=== PATIENT | female | born 2000 | race Hispanic/Latino ===

== ENCOUNTER 2023-10-25 15:42 | Emergency (ER) | payer SELFPAY ==
--- NOTE | 2023-10-25 15:45 | EDRN ---
called for pt, no response.
[2023-10-25 15:51] VITALS: BP 121/57
[2023-10-25 16:28] LABS: % Basophils 0.6 % (0-2); % Eosinophils 0.7 % (0-6); % Immature Granulocytes 0.2 % (0-0.5); % Lymphocytes 30.4 % (20.5-51.1); % Monocytes 5.8 % (1.7-9.3); % Neutrophils 62.3 % (42.2-75.2); Absolute Lymphocytes 1.6 10^3/uL (1.2-3.4); Absolute Monocytes 0.3 10^3/uL (0.1-0.6); Absolute Neutrophils 3.3 10^3/uL (1.4-6.5); Hematocrit 36.3 % (37.0-47.0); Hemoglobin 12.8 g/dL (12.0-16.0); Mean Corp Hgb Conc. 35.3 g/dL (33.0-37.0); Mean Corpuscular Hgb 31.7 pg (27.0-31.0); Mean Corpuscular Volume 89.9 fL (81.0-99.0); Mean Platelet Volume 9.3 fL (7.4-10.4); Nucleated Red Blood Cells % 0 %; Platelet Count 228 10^3/uL (130-400); Red Blood Cell Count 4.04 10^6/uL (4.20-5.40); Red Cell Dist. Width 12.9 % (11.5-14.5); White Blood Cell Count 5.4 10^3/uL (4.8-10.8)
--- NOTE | 2023-10-25 16:50 | ED.GENMED ---
History of Present Illness
General
Chief Complaint: Problems
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
Exam Limitations: none
Time Seen by Provider: 10/25/23 16:48
Nursing documentation reviewed up to this point in time: agreed with
History of Present Illness
History of Present Illness:
23 yo [id number] female states LMP 08/20. Yesterday first urination of a.m. she noted a lot of blood in toilet then small amounts when wiping but has not had to use pad and no blood in underwear.
Today, first void also had 'a lot' of blood in toilet and very little spotting on toilet paper since.
States minimal mid lower abd pain at this time.
Past History
Past History
ED Past Medical History: None
ED Past Surgical History:
Social History
Tobacco: Non-smoker
Alcohol: None
Review of Systems
Review of Systems
Allergies reviewed?: Yes
All Other Systems: ROS reviewed and negative except as documented in HPI and ROS
Constitutional: Denies fever or fatigue
Respiratory: Denies trouble breathing
Cardiac: Denies chest pain
ABD/GI: Reports abdominal pain (mild mid lower ); Denies nausea, vomiting or diarrhea
: Reports bleeding (as noted in HPI, no bleeding currently); Denies dysuria, frequency or difficulty voiding
Musculoskeletal: Reports no symptoms
Skin: Reports no symptoms
Neurological: Reports no symptoms
Phy Exam
Physical Exam
Physical Exam:
GENERAL: No acute distress. A&Ox3.
CONSTITUTIONAL: Afebrile.
EYES: clear, conjunctivae normal
ENMT: moist mucus membranes, Pharynx nl
RESPIRATORY: Regular respirations, nonlabored, lungs clear.
CARDIOVASCULAR: Regular rate and rhythm, no murmurs, no rubs.
GI: Soft, nontender, normal BS
MUSCULOSKELETAL: Moves with ease. Well perfused.
SKIN: Warm, dry, pink
PSYCH: Normal mood and affect. Well kept, interactive and appropriate
NEUROLOGIC: Awake, alert and oriented. No focal neurological deficits
Course
Orders/Labs/Results
Orders:
Orders
10/25/23 15:59
US 1st Trimester Urgent
Reason For Exam: bilateral pelvic/lower abd pain, vaginal bleeding
10/25/23 16:14
Type+Screen Urgent
Complete Blood Count/With Diff Urgent
HCG, Beta Quantitative [Beta HCG Quantitative] Urgent
Is this a screen?: No
10/25/23 17:22
ABO2 Urgent
BBK Wristband Number:
Associate notified that ABO2 has been ordered: [id number]
Date: 10/25/23
Time: 16:59
Inner Diameter Grinder Tool ID: [id number]
Abnormal Lab Results
10/25/23
16:14
RBC 4.04 L 10^6/uL
(4.20-5.40)
Hct 36.3 L %
(37.0-47.0)
MCH 31.7 H pg
(27.0-31.0)
10/25/23 16:14
Vital Signs
Initial and Last Documented VS:
Initial Vital Signs
Temp Pulse Resp BP Pulse Ox
98.8 F 54 18 121/57 100
10/25/23 15:51 10/25/23 15:51 10/25/23 15:51 10/25/23 15:51 10/25/23 15:51
Last Documented Vital Signs
Temp Pulse Resp BP Pulse Ox
98.8 F 52 18 96/57 98
10/25/23 15:51 10/25/23 19:52 10/25/23 19:52 10/25/23 19:52 10/25/23 19:52
Information
Weeks gestation: N/A
Location: N/A
MDM/Problems Addressed
Differential Diagnosis Includes:
bleeding in early , subchorionic bleeding, threatened miscarriage
MDM/Problems Addressed:
23 yo [id number] female states LMP 715. Yesterday first urination of a.m. she noted a lot of blood in toilet then small amounts when wiping but has not had to use pad and no blood in underwear.
Today, first void also had 'a lot' of blood in toilet and very little spotting on toilet paper since.
States minimal mid lower abd pain at this time.
5:00 p.m.
CBC normal
HCG 90862.00
Blood type O pos
Awaiting US result.
Case discussed with Neelima Cates who will assume care from this point.
*Critical Care Note
Total Time (30-74mins, 75-104mins- exclusive of procedures): Not Applicable
ED Attending Note
-
Portions of this chart may have been created with voice recognition software.� Occasional wrong word or��sound alike� substitutions may have occurred due to the inherent limitations of voice recognition software.
Discharge Plan
Departure
Patient Disposition: Home (Routine Discharge)
Date of Disposition: 10/25/23
Time of Disposition: 20:15
Patient with high blood pressure during this ER visit?: No
Condition: Good
Discharge Problem:
Bleeding in early
Instructions: Bleeding in Early (DC)
Referrals:
Malini El, DO [Active] - Next open appointment
NONE,* [Family Provider] -
Activity Restrictions/Additional Instructions:
As we discussed, the gestational sac is visible on ultrasound but a fetus was not detected. This can occur in early , or this can occur with demise. You will need to have your hormone levels rechecked and follow up with an
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
Interventions
Interventions:
*Risk Screen - Suicide Last Done: 10/25/23 16:49
*General Assessment Last Done: 10/25/23 16:47
*Neglect/Abuse Screening Last Done: 10/25/23 16:47
ED- Fall Risk Assessment Last Done: 10/25/23 16:47
*Nursing Disposition Last Done: 10/25/23 20:16
ED-Female Genitourinary Assessment Last Done: 10/25/23 16:47
Discharge Date and Time
Discharge Date/Time: 10/25/23 20:33
Print Language: AMHARIC
[2023-10-25 18:09] VITALS: BP 124/76
[2023-10-25 19:52] VITALS: BP 96/57
== END 2023-10-25 20:33 | disposition home or self-care (01) ==
LOC: EMR 15:42
PROVIDERS: EMERGENCY PHYSICIAN Emergency Medicine
DX: O20.9 Hemorrhage in early pregnancy, unspecified (principal); Z3A.01 Less than 8 weeks gestation of pregnancy; R10.30 Lower abdominal pain, unspecified
CPT/HCPCS: 99284; 76801; 84702; 85025; 86850; 86900; 86901

== ENCOUNTER 2023-12-11 15:22 | Emergency (ER) | payer SELFPAY ==
[2023-12-11 15:25] VITALS: BP 108/66
[2023-12-11 17:06] VITALS: BP 96/60
[2023-12-11 17:15] LABS: % Basophils 0.4 % (0-2); % Eosinophils 0.6 % (0-6); % Immature Granulocytes 0.2 % (0-0.5); % Lymphocytes 30.4 % (20.5-51.1); % Monocytes 8.6 % (1.7-9.3); % Neutrophils 59.8 % (42.2-75.2); Absolute Lymphocytes 1.6 10^3/uL (1.2-3.4); Absolute Monocytes 0.5 10^3/uL (0.1-0.6); Absolute Neutrophils 3.2 10^3/uL (1.4-6.5); Hematocrit 35.5 % (37.0-47.0); Hemoglobin 12.7 g/dL (12.0-16.0); Mean Corp Hgb Conc. 35.8 g/dL (33.0-37.0); Mean Corpuscular Volume 86.6 fL (81.0-99.0); Mean Platelet Volume 9.2 fL (7.4-10.4); Nucleated Red Blood Cells % 0 %; Platelet Count 231 10^3/uL (130-400); White Blood Cell Count 5.4 10^3/uL (4.8-10.8)
--- NOTE | 2023-12-11 17:27 | ED.GENMED ---
History of Present Illness
General
Chief Complaint: Problems
Source: patient
Exam Limitations: none
Time Seen by Provider: 12/11/23 16:07
Nursing documentation reviewed up to this point in time: agreed with
History of Present Illness
History of Present Illness:
pt is a 23 y/o f [id number]
here approx 12 weeks preg
vaginal bleeding started 4 days ago after intercourse; small amount, brown bleeding, no pain, no burning with urination
had eval here on 10/24 for PVB and had US showing 5 week gest sac with no pole or yolk sac
she was supposed to f/u but unfortuantely she doesn't have insurance and has not
she hasn't had bleeding until now
no fever/chills
Past History
Past History
ED Past Medical History: None
ED Past Surgical History:
Social History
Tobacco: Non-smoker
Alcohol: None
Review of Systems
Review of Systems
Allergies reviewed?: Yes
All Other Systems: Not applicable
Phy Exam
Physical Exam
Physical Exam:
GENERAL: Alert , in no apparent distress
EYE: pupils equal and reactive
NECK: Supple
ENT: o/p clr, mmm.
CARDIAC: Regular rate and rhythm .
LUNGS: Clear breath sounds bilaterally, no acute respiratory distress, no wheezes/rales/rhonchi
ABDOMEN: Soft, without focal tenderness, no r/g, no cvat, normal bowel sounds
: small amount of brownish/red blood in vault
os closed
nontneder
no lacerations
NEUROLOGICAL: Alert and oriented, no focal neuro deficits
SKIN: Warm and dry, skin intact.
MUSCULOSKELETAL: No edema, well perfused. neg domingo's sign
PSYCH: Normal and appropriate interaction.
Course
Orders/Labs/Results
Orders:
Orders
12/11/23 16:56
1st Trimester US [US 1st Trimester] Urgent
Comment:
Reason For Exam: VAG BLEED PREG; HAS NOT HAD IUP DOCUMENTED ON US
12/11/23 17:08
Beta HCG Quantitative Urgent
Is this a screen?: No
Complete Blood Count/With Diff Urgent
Comprehensive Metabolic Panel Urgent
Abnormal Lab Results
12/11/23
17:08
RBC 4.10 L 10^6/uL
(4.20-5.40)
Hct 35.5 L %
(37.0-47.0)
Creatinine 0.5 L mg/dL
(0.6-1.0)
12/11/23 17:08
12/11/23 17:08
Vital Signs
Initial and Last Documented VS:
Initial Vital Signs
Temp Pulse Resp BP Pulse Ox
98 F 66 16 108/66 100
12/11/23 15:25 12/11/23 15:25 12/11/23 15:25 12/11/23 15:25 12/11/23 15:25
Last Documented Vital Signs
Temp Pulse Resp BP Pulse Ox
98 F 66 16 112/95 99
12/11/23 15:25 12/11/23 15:25 12/11/23 15:25 12/11/23 19:00 12/11/23 19:00
Information
Weeks gestation: N/A
Location: N/A
MDM/Problems Addressed
Differential Diagnosis Includes:
pvb, threatened miscarriage, ectopic, failed
MDM/Problems Addressed:
pt is a 23 y/o F [id number]
approx 12 weeks preg
here with vag bleeding mild x 4 days after intercourse, no clots, no pain
has had initial eval for on 10/24 and she had gest sac without pole/yolk sac
she did not f/u due to lack of insurance
rh + blood type
small amount of brownish blood in vault
os closed
abd nontender
will check labs and US.
beta is down trending from 10k to 2k
o+
US shows failed IUP 9 weeks pole, no cardiac activity
she is hemodynamically stable
i fear she will be lost to follow up
d/w dr. arroyo on for ob/gyne who recommended d/c home with instructions to call the office tomorrow
*Critical Care Note
Total Time (30-74mins, 75-104mins- exclusive of procedures): Not Applicable
ED Attending Note
-
Portions of this chart may have been created with voice recognition software.� Occasional wrong word or��sound alike� substitutions may have occurred due to the inherent limitations of voice recognition software.
Discharge Plan
Departure
Patient Disposition: Home (Routine Discharge)
Date of Disposition: 12/11/23
Time of Disposition: 18:46
Patient with high blood pressure during this ER visit?: No
Discharge Problem:
Incomplete miscarriage
Instructions: Miscarriage (DC)
Referrals:
Kenrick Ott MD [Active] - Tomorrow (call tomorrow for an appointment)
NONE,* [Family Provider] -
Activity Restrictions/Additional Instructions:
YOUR STOPPED GROWING. YOU ARE HAVING A MISCARRIAGE
YOU HAVE TO CALL THE OFFICE TOMORROW BECUASE YOU NEED AN APPOINTMENT. YOU MAY NEED MEDICATION OR A SURGERY TO HELP YOU COMPLETE THE MISCARRIAGE
YOUR BLEEDING COULD GET HEAVIER, THIS IS EXPECTED WITH MISCARRIAGE. HOWEVER, IF YOU ARE BLEEDING MORE THAN 1 PAD SOAKED OVER 1 HOUR FOR 2 HOURS IN A ROW OR MORE YOU NEED TO RETURN
ALSO RETURN FOR WORSE PAIN, FEVER, OR ANY CONCERNS.
TU EMBARAZO DANIAL� DE CRECER. ESTAS TIENDO UN ABORTO ESPONT�KATHY
TIENES QUE LLAMAR A LA OFICINA MA�SUKUMAR PORQUE NECESITAS HILDA KANDACE. PUEDE NECESITAR MEDICAMENTOS O HILDA CIRUG�A PARA AYUDARLE A COMPLETAR EL ABORTO ESPONT�TAMIKA
PERKINS [place] PODR�A SER M�S PETRA, ESTO SE ESPERA EN UN ABORTO ESPONT�TAMIKA. SIN EMBARGO, SI EST� [place] M�S DE 1 TOALLA IMPERMEADA LILI 1 HORA LILI 2 HORAS SEGUIDAS O M�S, DEBE REGRESAR
TAMBI�N REGRESE POR DOLOR PEOR, FIEBRE O CUALQUIER PREOCUPACI�N.
Interventions
Interventions:
*Risk Screen - Suicide Last Done: 12/11/23 15:28
*General Assessment Last Done: 12/11/23 18:59
*Neglect/Abuse Screening Last Done: 12/11/23 15:28
*ED COVID-19 Vaccine History Last Done: 12/11/23 15:28
*Nursing Disposition Last Done: 12/11/23 19:21
ED-Female Genitourinary Assessment Last Done: 12/11/23 17:01
Discharge Date and Time
Discharge Date/Time: 12/11/23 19:22
Print Language: ANGOLAN
[2023-12-11 17:31] LABS: ALT (SGPT) 19 U/L (0-35); AST (SGOT) 28 U/L (14-36); Albumin 4.7 g/dl (3.5-5.0); Alkaline Phosphatase 47 U/L (38-126); Blood Urea Nitrogen 10 mg/dl (7-17); Calcium 9.4 mg/dl (8.4-10.2); Carbon Dioxide 22 mmol/L (22-30); Chloride 104 mmol/L (98-107); Glucose 78 mg/dl (70-99); Sodium 139 mmol/L (135-145); Total Bilirubin 0.8 mg/dl (0.2-1.3); Total Protein 7.4 g/dl (6.3-8.2); eGFR > 60.00
[2023-12-11 18:00] VITALS: BP 101/56
[2023-12-11 18:20] VITALS: BP 99/69
[2023-12-11 19:00] VITALS: BP 112/95
== END 2023-12-11 19:22 | disposition home or self-care (01) ==
LOC: EMR 15:22
PROVIDERS: Physician Assistant; EMERGENCY PHYSICIAN Emergency Medicine
DX: O03.4 Incomplete spontaneous abortion without complication (principal); Z59.71 Insufficient health insurance coverage
CPT/HCPCS: 99284; 76801; 80053; 84702; 85025